=== PATIENT | female | born 1980 | race Caucasian/White ===

== ENCOUNTER 2024-12-05 08:51 | Outpatient (RCR) | payer BC, SELFPAY | END 2024-12-05 09:51 | disposition home or self-care (01) | LOC: HO.PT 08:51 | PROVIDERS: PCP Family Medicine; Visit Provider Family Medicine | DX: M99.05 Segmental and somatic dysfunction of pelvic region (principal) | CPT/HCPCS: 97112; 97140; 97161 ==